=== PATIENT | female | born 1995 | race Caucasian/White ===

== ENCOUNTER 2018-05-19 | Emergency (ER) | payer OTHER ==
[2018-05-19 01:04] VITALS: BP 120/64
[2018-05-19 01:31] LABS: APPEARANCE,URINE SLIGHTLY-CLOUDY; BILIRUBIN,URINE NEGATIVE (NEGATIVE); COLOR,URINE YELLOW; GLUCOSE, URINE NEGATIVE (NEGATIVE); KETONES,URINE NEGATIVE (NEGATIVE); LEUKOCYTE ESTERASE,URINE SMALL (NEGATIVE); NITRITE,URINE NEGATIVE (NEGATIVE); PROTEIN,URINE NEGATIVE (NEGATIVE); URINE SPECIFIC GRAVITY 1.021; UROBILINOGEN,URINE NEGATIVE mg/dL (<2.0)
--- NOTE | 2018-05-19 01:53 | ER Document Report ---
ED General - General Chief Complaint: Pelvic Pain Stated Complaint: VAGINAL BLEEDING Time Seen by Provider: 05/19/18 01:09 Mode of Arrival: Ambulatory Information source: Patient Notes: Patient is an otherwise healthy 22-year-old female who presents with complaint of pelvic cramping. Patient reports that on Saturday she had a large gush of blood come out of her vagina. Patient reports that this scared her so she went to the [facility] emergency department where she had a full workup to include blood work, urine as well as a transvaginal ultrasound. Patient reports that the physician at the [facility] told her that her workup was completely normal and she was experiencing an episode of abnormal vaginal bleeding. Patient states that her vaginal bleeding has completely resolved however she is still having some cramping in her pelvic region. Patient states that she has not taken any ibuprofen or Tylenol for this pain. Patient reports that she would just like to "get some answers". Patient denies any other past medical history. Patient did have a miscarriage approximately 5 months ago at it about 4-5 weeks gestation. Patient reports her last normal period was 1 week ago. TRAVEL OUTSIDE OF THE [place] IN LAST 30 DAYS: No - Related Data Allergies/Adverse Reactions: No Known Allergies Allergy (Unverified 05/19/18 00:06) Past Medical History - General Information source: Patient - Social History Smoking Status: Never Smoker Frequency of alcohol use: None Drug Abuse: None Family History: Reviewed & Not Pertinent Patient has suicidal ideation: No Patient has homicidal ideation: No - Medical History Medical History: Negative Renal/ Medical History: Denies: Hx Peritoneal Dialysis Surgical Hx: Negative - Immunizations Immunizations up to date: Yes Hx Diphtheria, Pertussis, Tetanus Vaccination: Yes Review of Systems - Review of Systems Constitutional: No symptoms reported EENT: No symptoms reported Cardiovascular: No symptoms reported Respiratory: No symptoms reported Gastrointestinal: No symptoms reported Genitourinary: No symptoms reported Female Genitourinary: See HPI Musculoskeletal: No symptoms reported Skin: No symptoms reported Hematologic/Lymphatic: No symptoms reported Neurological/Psychological: No symptoms reported Physical Exam - Vital signs Vitals: Temp Pulse Resp BP Pulse Ox 97.9 F 79 16 120/64 99 05/19/18 01:03 05/19/18 01:03 05/19/18 01:03 05/19/18 01:03 05/19/18 01:03 - Notes Notes: PHYSICAL EXAMINATION: GENERAL: Well-appearing, well-nourished and in no acute distress. HEAD: Atraumatic, normocephalic. EYES: Pupils equal round and reactive to light, extraocular movements intact, conjunctiva are normal. ENT: Nares patent, oropharynx clear without exudates. Moist mucous membranes. NECK: Normal range of motion, supple without lymphadenopathy LUNGS: Breath sounds clear to auscultation bilaterally and equal. No wheezes rales or rhonchi. HEART: Regular rate and rhythm without murmurs ABDOMEN: Soft, nontender, nondistended abdomen. No guarding, no rebound. No masses appreciated. Female : No CVA tenderness, patient declined pelvic examination. Musculoskeletal: Normal range of motion, no pitting or edema. No cyanosis. NEUROLOGICAL: Cranial nerves grossly intact. Normal speech, normal gait. Normal sensory, motor exams PSYCH: Normal mood, normal affect. SKIN: Warm, Dry, normal turgor, no rashes or lesions noted. Course - Re-evaluation Re-evalutation: Otherwise healthy 22-year-old female presenting with complaint of pelvic cramping. Patient reports that these feel like strong menstrual cramps. Patient denies any vaginal bleeding. Patient does report that about 6 months ago she had a ovarian cyst on ultrasound, patient reports that when she had the transvaginal ultrasound done 2 days ago at [facility] there was no ovarian cyst present and she feels. Patient declines the need for any pain medication. Patient urinalysis is normal. Patient's hCG is negative. Patient's vital signs are stable. Patient continues to deny any vaginal bleeding. Patient will be discharged home with plan to follow-up with her [employer]. Patient will be given prescription for ibuprofen. Patient is agreeable to this plan of care. - Vital Signs Vital signs: Temp Pulse Resp BP Pulse Ox 97.9 F 79 16 120/64 99 05/19/18 01:03 05/19/18 01:03 05/19/18 01:03 05/19/18 01:03 05/19/18 01:03 - Laboratory Laboratory results interpreted by me: 05/19/18 01:15 Urine Blood MODERATE H Ur Leukocyte Esterase SMALL H Discharge - Discharge Clinical Impression: Pelvic pain Condition: Stable Disposition: HOME, SELF-CARE Additional Instructions: Pelvic Pain There are many causes of pain in the pelvic area. The cause could be the tubes, ovaries, uterus, intestines, appendix, pelvic muscles and connective tissue, or the urinary tract. The cause of your pelvic pain is not clear. However, it seems safe to treat you outside the hospital. If the pain sounds like a temporary problem, we sometimes wait to see if it goes away. Other patients may need additional tests, such as pelvic ultrasound or cultures. Conditions may change. Call us or come back for reexamination if any problems occur, such as: (1) Pain that becomes more severe, steady, or becomes concentrated in one specific area. Also, pain that is more severe with movement or coughing. (2) Vomiting that persists or becomes more frequent. (3) Blood in the vomitus, urine, or bowel movements. Blood in the stool may have a tarry or black appearance. (4) Shaking chills or fever greater than 100 degrees. (5) The abdomen becomes more distended or swollen. (6) Bowel movements cease. (7) Heavy vaginal bleeding. Please follow-up with your primary care provider or [facility] this week for a recheck, call Saturday morning for an appointment. Return to the emergency department if any of the above symptoms occur. I would recommend taking 800 mg of ibuprofen every 8 hours for the pain. Prescriptions: Ibuprofen 800 mg PO Q8 PRN #30 tablet PRN Reason: For Pain Referrals: [facility] [Provider Group] - Follow up as needed [facility] [Provider Group] - Follow up as needed
== END 2018-05-19 02:31 | disposition home or self-care (01) ==
LOC: ER
DX: R10.2 Pelvic and perineal pain (principal); N93.9 Abnormal uterine and vaginal bleeding, unspecified; Z87.59 Personal history of other complications of pregnancy, childbirth and the puerperium
CPT/HCPCS: 81001; 81025; 99284